=== PATIENT | female | born 1950 | race Caucasian/White ===

== ENCOUNTER 2017-03-11 10:01 | Outpatient (CLI) | payer MEDICARE, BC ==
[~2017-03-11] VITALS: Ht 160 cm; Wt 81.6 kg
[~2017-03-11 10:01] MED LIST: CITA20TA4 PO; LIDOCAINE 2% INJ 100 MG/5 ML SDV (FOR ANES.) As Ordered ONE; PROAAER10 INH; PROPOFOL 200 MG/20 ML VIAL As Ordered ONE; RALO1TAB PO; SIMV40TA2 PO; SPIR12.9 INH; VESI10TA2 PO
[2017-03-11] MEDS ORDERED: NS 1,000 ML IV SCH (10:15)
--- NOTE | 2017-03-11 11:23 | ROOR ---
Patient Name: Fabby Braga Procedure Date: 03/11/2017 10:58 AM Date of : 1950 Age: 66 Room: [facility] Gender: Female Note Status: Finalized Procedure: Colonoscopy Indications: High risk colon cancer surveillance: Personal history of colonic polyps Providers: Joaquín Watkins Jr, MD Referring MD: Megan Michel NP Requesting Provider: Medicines: Propofol per Anesthesia Complications: No immediate complications. Procedure: Pre-Anesthesia Assessment: - Prior to the procedure, a History and Physical was performed, and patient medications and allergies were reviewed. The patient is competent. The risks and benefits of the procedure and the sedation options and risks were discussed with the patient. All questions were answered and informed consent was obtained. Patient identification and proposed procedure were verified by the physician and the nurse in the pre-procedure area and in the procedure room. Mental Status Examination: alert and oriented. Airway Examination: normal oropharyngeal airway and neck mobility. Respiratory Examination: clear to auscultation. CV Examination: normal. ASA Grade Assessment: II - A patient with mild systemic disease. After reviewing the risks and benefits, the patient was deemed in satisfactory condition to undergo the procedure. The anesthesia plan was to use moderate sedation / analgesia (conscious sedation). Immediately prior to administration of medications, the patient was re-assessed for adequacy to receive sedatives. The heart rate, respiratory rate, oxygen saturations, blood pressure, adequacy of pulmonary ventilation, and response to care were monitored throughout the procedure. The physical status of the patient was re-assessed after the procedure. The Colonoscope was introduced through the anus and advanced to the cecum, identified by appendiceal orifice and ileocecal valve. The colonoscopy was performed without difficulty. The patient tolerated the procedure well. The quality of the bowel preparation was adequate and good. Findings: The rectum, recto-sigmoid colon, descending colon, transverse colon, ascending colon, cecum, appendiceal orifice and ileocecal valve appeared normal. Multiple small and large-mouthed diverticula were found in the sigmoid colon.There was some mild inflammation associated with the prep. Impression: - The rectum, recto-sigmoid colon, descending colon, transverse colon, ascending colon, cecum, appendiceal orifice and ileocecal valve are normal. - Diverticulosis in the sigmoid colon. - No specimens collected. Recommendation: - Discharge patient to home (ambulatory). - Repeat colonoscopy in 5 years for surveillance. Joaquín Watkins MD Joaquín Watkins Jr, MD 03/11/2017 11:22:47 AM This report has been signed electronically. Number of Addenda: 0 Note Initiated On: 03/11/2017 10:58 AM Estimated Blood Loss: Estimated blood loss: none.
[2017-03-11 11:38] VITALS: BP 149/67
== END 2017-03-11 11:44 | disposition home or self-care (01) ==
LOC: M OPP 10:01
PROVIDERS: ATTEND Surgery
DX: Z12.11 Encounter for screening for malignant neoplasm of colon (principal); Z86.010 Personal history of colon polyps; K57.30 Diverticulosis of large intestine without perforation or abscess without bleeding; F41.9 Anxiety disorder, unspecified; F32.9 Major depressive disorder, single episode, unspecified; J44.9 Chronic obstructive pulmonary disease, unspecified; E78.00 Pure hypercholesterolemia, unspecified; M19.90 Unspecified osteoarthritis, unspecified site; F17.210 Nicotine dependence, cigarettes, uncomplicated; Z79.82 Long term (current) use of aspirin; Z79.899 Other long term (current) drug therapy; Z88.0 Allergy status to penicillin

== ENCOUNTER → 2017-12-08 | Outpatient (CLI) | payer MEDICARE, BC | LOC: M RAD 13:27 | DX: Z12.31 Encounter for screening mammogram for malignant neoplasm of breast (principal) | CPT/HCPCS: 77067 ==

== ENCOUNTER → 2018-12-26 | Outpatient (CLI) | payer MEDICARE, BC ==
[~2018-12-26] MED LIST changes: -CITA20TA4 PO; +CITA20TA6 PO; -LIDOCAINE 2% INJ 100 MG/5 ML SDV (FOR ANES.) As Ordered ONE; -PROPOFOL 200 MG/20 ML VIAL As Ordered ONE
--- NOTE | 2018-12-26 15:28 | REPMRS ---
Patient History The patient states she had a clinical breast exam in October 2018. Family history of breast cancer at age 63 in sister. Took hormonal contraceptives for 5 years. Taking unspecified hormones for 18 years. Digital Mammo Screening Bilat: December 26, 2018 - Exam #: [id number] Bilateral CC and MLO view(s) were taken. Technologist: La Nena Garcia, Technologist Prior study comparison: December 08, 2017, bilateral digital mammo screening bilat performed at [facility]. May 06, 2016, bilateral digital mammo screening bilat performed at [facility]. April 22, 2015, digital bilateral screening mammo, performed at [facility]. FINDINGS: There are scattered fibroglandular densities. There has been no change in the appearance of the mammogram from the prior studies. There is a mild amount of scattered fibroglandular density which is fairly symmetric. There is no interval development of dominant mass, architectural distortion, or clustered microcalcification suggestive of malignancy. 3-D tomosynthesis shows no additional findings. Assessment: BI-RADS/ACR category 1 mammogram. Negative Mammogram. Recommendation Routine screening mammogram of both breasts in 1 year (for women over age 40). This patient's Lifetime Breast Cancer RIsk is estimated at 7.9 %. This mammogram was interpreted with the aid of an FDA-approved computer-aided dectection system. Electronically Signed By: Pillo Marmolejo MD 12/26/18 [id number]
== END ==
LOC: M RAD 14:20
PROVIDERS: ATTEND Nurse Practitioner Adult Health
DX: Z12.31 Encounter for screening mammogram for malignant neoplasm of breast (principal); Z80.3 Family history of malignant neoplasm of breast; Z92.0 Personal history of contraception; Z92.23 Personal history of estrogen therapy

== ENCOUNTER → 2020-05-14 | Outpatient (CLI) | payer MEDICARE, BC ==
[~2020-05-14] MED LIST changes: -SIMV40TA2 PO; +SIMV40TA20 PO
--- NOTE | 2020-05-14 17:47 | REP ---
INDICATION: NICOTINE DEPENDENCE. COMPARISON: 08/07/2008. TECHNIQUE: Low dose screening CT chest performed without the use of intravenous contrast. FINDINGS: Lungs: There is no infiltrate or suspicious nodule bilaterally. There are scattered interstitial fibrotic changes which are relatively mild, right more so than left lung. There are diffuse calcified pleural plaques on the right. Heart: Not enlarged. Thoracic aorta: No aneurysm. Atherosclerotic calcifications are noted. Visualized osseous structures: There are mild degenerative changes of the spine. IMPRESSION: Category 2 benign low-dose lung screening CT. Calcified pleural plaques on the right. Scattered interstitial fibrotic change. No suspicious nodule. Recommend follow-up exam in 1 year. <Electronically signed by Taiwo Herman > 05/14/20 1304
== END ==
LOC: M RAD 12:41
PROVIDERS: ATTEND Nurse Practitioner Adult Health
DX: F17.210 Nicotine dependence, cigarettes, uncomplicated (principal); R91.8 Other nonspecific abnormal finding of lung field

== ENCOUNTER → 2020-05-29 | Outpatient (CLI) | payer MEDICARE, BC ==
--- NOTE | 2020-05-29 15:47 | REPMRS ---
Patient History The patient states she has not had a clinical breast exam in over a year. Family history of breast cancer at age 63 in sister. Took hormonal contraceptives for 5 years. Taking unspecified hormones for 18 years. Digital Woman Screen Mammo: May 29, 2020 - Exam #: [id number] Bilateral CC and MLO view(s) were taken. Technologist: Katerina Zavala, Technologist Prior study comparison: December 26, 2018, bilateral digital mammo screening bilat, performed at [facility]. December 08, 2017, bilateral digital mammo screening bilat, performed at [facility]. May 06, 2016, bilateral digital mammo screening bilat, performed at [facility]. FINDINGS: There are scattered fibroglandular densities. The Volpara volumetric breast density category is:B. There has been no change in the appearance of the mammogram from the prior studies. There is a mild amount of scattered fibroglandular density which is fairly symmetric. There is no interval development of dominant mass, architectural distortion, or grouped microcalcification suggestive of malignancy. 3-D tomosynthesis shows no additional findings. Assessment: BI-RADS/ACR category 1 mammogram. Negative Mammogram. Recommendation Routine screening mammogram of both breasts in 1 year (for women over age 40). This patient's Lifetime Breast Cancer Risk is estimated at 7.1 %. This mammogram was interpreted with the aid of an FDA-approved computer-aided dectection system. Electronically Signed By: Pillo Marmolejo MD 05/29/20 [id number]
== END ==
LOC: M WHC 14:21
PROVIDERS: ATTEND Nurse Practitioner Adult Health
DX: Z12.31 Encounter for screening mammogram for malignant neoplasm of breast (principal); Z80.3 Family history of malignant neoplasm of breast

== ENCOUNTER 2020-12-21 18:05 | Emergency (ER) | payer MEDICARE, BC ==
[~2020-12-21] VITALS: Ht 160 cm; Wt 76.3 kg
[2020-12-21] MEDS ORDERED: predniSONE 20 MG TAB PO ONE (20:05)
[2020-12-21] MEDS ORDERED: BENA25CA4 PO (20:05)
[2020-12-21] MEDS ORDERED: diphenhydrAMINE 25MG CAP PO ONE (20:05)
[2020-12-21] MEDS ORDERED: PRED20TA PO (20:05)
[2020-12-21] MEDS ORDERED: POLYSOL OP (20:07)
[2020-12-21 20:19] VITALS: BP 141/64
== END 2020-12-21 20:21 | disposition home or self-care (01) ==
LOC: M ED 18:05
DX: S00.261A Insect bite (nonvenomous) of right eyelid and periocular area, initial encounter (principal); W57.XXXA Bitten or stung by nonvenomous insect and other nonvenomous arthropods, initial encounter; Y92.89 Other specified places as the place of occurrence of the external cause; J44.9 Chronic obstructive pulmonary disease, unspecified; M79.9 Soft tissue disorder, unspecified; F41.9 Anxiety disorder, unspecified; F32.9 Major depressive disorder, single episode, unspecified; H40.9 Unspecified glaucoma; Z79.899 Other long term (current) drug therapy; Z88.0 Allergy status to penicillin
CPT/HCPCS: 99283; J7512

== ENCOUNTER → 2021-02-13 | Outpatient (CLI) | payer MEDICARE, BC ==
[~2021-02-13] MED LIST changes: +BENA25CA4 PO; +POLYSOL OP; +PRED20TA PO
== END ==
LOC: M LAB 15:12
PROVIDERS: ATTEND Physician Assistant Medical
DX: R29.2 Abnormal reflex (principal)

== ENCOUNTER → 2021-02-21 | Outpatient (REF) | payer MEDICARE, BC | LOC: M LAB REF 14:42 | PROVIDERS: ATTEND Internal Medicine Gastroenterology | DX: R19.7 Diarrhea, unspecified (principal) ==

== ENCOUNTER → 2021-04-23 | Outpatient (CLI) | payer MEDICARE, BC ==
[~2021-04-23] MED LIST changes: +BRIM1OPD; +ECOT81TA5 PO; +LATA0.0015; +VENL37TA
== END ==
LOC: M LABSMTC 11:21
PROVIDERS: ATTEND Anesthesiology
DX: Z01.818 Encounter for other preprocedural examination (principal); Z11.52 Encounter for screening for COVID-19

== ENCOUNTER 2021-04-28 07:47 | Day surgery (SDC) | payer MEDICARE, BC ==
[~2021-04-28] VITALS: Ht 160 cm; Wt 75.2 kg
[~2021-04-28 07:47] MED LIST changes: +LIDOCAINE 2% 100MG/5ML SDV (FOR ANES.) As Ordered ONE; +NS 1,000 ML IV ONE; +propofoL 200 MG/20 ML VIAL As Ordered ONE
[2021-04-28] MEDS ORDERED: PROMETHAZINE INJ 25 MG/ML VIAL (J2550) As Ordered ONE (08:44)
--- NOTE | 2021-04-28 09:19 | ROOR ---
Patient Name: Fabby Braga Procedure Date: 04/28/2021 8:33 AM Date of : 1950 Age: 71 Room: [facility] Gender: Female Note Status: Finalized Procedure: Colonoscopy Indications: Chronic diarrhea Providers: Homero Singh MD Referring MD: Megan Michel NP Requesting Provider: Medicines: Monitored Anesthesia Care Complications: No immediate complications. Procedure: Pre-Anesthesia Assessment: - Prior to the procedure, a History and Physical was performed, and patient medications and allergies were reviewed. The patient is competent. The risks and benefits of the procedure and the sedation options and risks were discussed with the patient. All questions were answered and informed consent was obtained. Patient identification and proposed procedure were verified by the physician, the nurse and the anesthesiologist in the procedure room. Mental Status Examination: alert and oriented. Airway Examination: normal oropharyngeal airway and neck mobility. Respiratory Examination: clear to auscultation. CV Examination: normal. Prophylactic Antibiotics: The patient does not require prophylactic antibiotics. Prior Anticoagulants: The patient has taken no previous anticoagulant or antiplatelet agents. ASA Grade Assessment: II - A patient with mild systemic disease. After reviewing the risks and benefits, the patient was deemed in satisfactory condition to undergo the procedure. The anesthesia plan was to use monitored anesthesia care (MAC). Immediately prior to administration of medications, the patient was re-assessed for adequacy to receive sedatives. The heart rate, respiratory rate, oxygen saturations, blood pressure, adequacy of pulmonary ventilation, and response to care were monitored throughout the procedure. The physical status of the patient was re-assessed after the procedure. The Colonoscope was introduced through the anus and advanced to the terminal ileum, with identification of the appendiceal orifice and IC valve. The colonoscopy was performed without difficulty. The patient tolerated the procedure well. The quality of the bowel preparation was good. The terminal ileum, ileocecal valve, appendiceal orifice, and rectum were photographed. Scope insertion time was 2 minutes. Scope withdrawal time was 9 minutes. The total duration of the procedure was 14 minutes. Findings: The perianal and digital rectal examinations were normal. The terminal ileum appeared normal. Multiple small and large-mouthed diverticula were found from sigmoid to descending colon. There was evidence of diverticular spasm. Adriana-diverticular erythema was seen. There was no evidence of diverticular bleeding. Normal mucosa was found in the entire colon. Biopsies for histology were taken with a cold forceps from the right colon, left colon and rectosigmoid colon for evaluation of microscopic colitis. Verification of patient identification for the specimen was done by the physician and nurse using the patient's name, date and medical record number. Estimated blood loss was minimal. Non-bleeding external and internal hemorrhoids were found during retroflexion. The hemorrhoids were medium-sized. Impression: - The examined portion of the ileum was normal. - Severe diverticulosis from sigmoid to descending colon. There was evidence of diverticular spasm. Adriana-diverticular erythema was seen. There was no evidence of diverticular bleeding. - Normal mucosa in the entire examined colon. Biopsied. - Non-bleeding external and internal hemorrhoids. Recommendation: - Patient has a contact number available for emergencies. The signs and symptoms of potential delayed complications were discussed with the patient. Return to normal activities tomorrow. Written discharge instructions were provided to the patient. - High fiber diet. - Continue present medications. - Use fiber, for example Citrucel, Fibercon, Konsyl or Metamucil. - Await pathology results. - Repeat colonoscopy in 5-10 years for surveillance based on pathology results. - Telephone GI clinic for pathology results in 2 weeks. - Return to GI clinic if persistent symptoms or new symptoms. - Return to primary care physician. Procedure Code(s): --- Professional --- 71284, Colonoscopy, flexible; with biopsy, single or multiple Diagnosis Code(s): --- Professional --- K64.8, Other hemorrhoids K52.9, Noninfective gastroenteritis and colitis, unspecified K57.30, Diverticulosis of large intestine without perforation or abscess without bleeding CPT copyright 2019 [employer]. All rights reserved. The codes documented in this report are preliminary and upon water treatment plant operator review may be revised to meet current compliance requirements. Homero Singh MD Homero Singh MD 04/28/2021 9:19:09 AM Electronically signed by Homero Singh MD Number of Addenda: 0 Note Initiated On: 04/28/2021 8:33 AM Estimated Blood Loss: Estimated blood loss was minimal.
[2021-04-28 09:30] VITALS: BP 120/84
== END 2021-04-28 10:02 | disposition home or self-care (01) ==
LOC: M OPP 07:47
PROVIDERS: ATTEND Internal Medicine Gastroenterology
DX: K52.9 Noninfective gastroenteritis and colitis, unspecified (principal); K57.30 Diverticulosis of large intestine without perforation or abscess without bleeding; K64.8 Other hemorrhoids; G47.30 Sleep apnea, unspecified; J44.9 Chronic obstructive pulmonary disease, unspecified; Z79.82 Long term (current) use of aspirin; Z79.899 Other long term (current) drug therapy; Z88.0 Allergy status to penicillin; F17.210 Nicotine dependence, cigarettes, uncomplicated

== ENCOUNTER → 2021-06-24 | Outpatient (CLI) | payer MEDICARE, BC ==
[~2021-06-24] MED LIST changes: -LIDOCAINE 2% 100MG/5ML SDV (FOR ANES.) As Ordered ONE; -NS 1,000 ML IV ONE; -propofoL 200 MG/20 ML VIAL As Ordered ONE
--- NOTE | 2021-06-24 15:03 | REP ---
INDICATION: STENOSIS COMPARISON: 06/11/2020. TECHNIQUE: Real-time ultrasound evaluation and duplex Doppler interrogation of the extracranial carotid vasculature is performed. FINDINGS: There is moderate calcific plaque in the right common carotid artery, carotid bulb, extending into the internal and external carotid arteries. There is relatively mild plaquing in the left carotid bulb and internal carotid artery. There is elevated peak systolic velocity in both internal carotid arteries compatible with bilateral stenosis between 50 and 69%, unchanged since the prior study. There is normal direction of flow in the right vertebral artery. The left vertebral artery is not visualized. RIGHT LEFT Peak systolic velocity ICA 230 cm/s 144 cm/s End diastolic velocity ICA 52.1 cm/s 31.1 cm/s Peak systolic velocity CCA 114.0 cm/s 94.2cm/s Peak systolic velocity ECA 170 cm/s 391 cm/s ICA/CCA ratio 2.02 1.53 IMPRESSION: No significant change compared to the prior study. There are findings compatible with bilateral stenosis of the internal carotid arteries 50-69%. <Electronically signed by Taiwo Herman > 06/24/21 1500
== END ==
LOC: M RAD 13:17
PROVIDERS: ATTEND Surgery Vascular Surgery
DX: I65.23 Occlusion and stenosis of bilateral carotid arteries (principal)

== ENCOUNTER → 2021-07-28 | Outpatient (CLI) | payer MEDICARE, BC | LOC: M WHC 12:57 | PROVIDERS: ATTEND Nurse Practitioner Adult Health | DX: Z12.31 Encounter for screening mammogram for malignant neoplasm of breast (principal) ==

== ENCOUNTER → 2021-08-25 | Outpatient (CLI) | payer MEDICARE, BC | LOC: M RAD 12:52 | PROVIDERS: ATTEND Nurse Practitioner Adult Health | DX: Z87.891 Personal history of nicotine dependence (principal) ==

== ENCOUNTER → 2022-06-25 | Outpatient (CLI) | payer MEDICARE, BC | LOC: M RAD 13:44 | PROVIDERS: ATTEND Physician Assistant | DX: I65.23 Occlusion and stenosis of bilateral carotid arteries (principal) ==

== ENCOUNTER → 2022-09-22 | Outpatient (CLI) | payer MEDICARE, BC | LOC: M WHC 15:47 | PROVIDERS: ATTEND Nurse Practitioner Adult Health | DX: Z12.31 Encounter for screening mammogram for malignant neoplasm of breast (principal) ==

== ENCOUNTER → 2023-06-30 | Outpatient (CLI) | payer MEDICARE, BC | LOC: M RAD 11:37 | PROVIDERS: ATTEND Physician Assistant | DX: I65.23 Occlusion and stenosis of bilateral carotid arteries (principal) ==

== ENCOUNTER → 2024-01-11 | Outpatient (CLI) | payer MEDICARE, BC | LOC: M RAD 12:10 | PROVIDERS: ATTEND Physician Assistant | DX: I65.23 Occlusion and stenosis of bilateral carotid arteries (principal); M79.609 Pain in unspecified limb ==

== ENCOUNTER → 2024-01-11 | Outpatient (CLI) | payer MEDICARE, BC | LOC: M RAD 12:13 | PROVIDERS: ATTEND Podiatrist | DX: M79.609 Pain in unspecified limb (principal) ==

== ENCOUNTER → 2024-02-17 | Outpatient (CLI) | payer MEDICARE, BC | LOC: M RAD 14:49 | PROVIDERS: ATTEND Nurse Practitioner Adult Health | DX: Z12.2 Encounter for screening for malignant neoplasm of respiratory organs (principal); F17.210 Nicotine dependence, cigarettes, uncomplicated ==

== ENCOUNTER → 2024-03-08 | Outpatient (CLI) | payer MEDICARE, BC | LOC: M PLAIMG 13:24 | PROVIDERS: ATTEND Internal Medicine | DX: R26.81 Unsteadiness on feet (principal) ==

== ENCOUNTER → 2024-03-09 | Outpatient (CLI) | payer MEDICARE, BC | LOC: M WHC 14:43 | PROVIDERS: ATTEND Nurse Practitioner Adult Health | DX: Z12.31 Encounter for screening mammogram for malignant neoplasm of breast (principal); M81.0 Age-related osteoporosis without current pathological fracture ==

== ENCOUNTER → 2024-11-22 | Outpatient (CLI) | payer MEDICARE, BC ==
[~2024-11-22] MED LIST changes: -BRIM1OPD; +BRIM5DRO25
== END ==
LOC: M RAD 13:39
PROVIDERS: ATTEND Nurse Practitioner Adult Health
DX: F17.210 Nicotine dependence, cigarettes, uncomplicated (principal)

== ENCOUNTER → 2025-01-16 | Outpatient (REF) | payer MEDICARE, BC | LOC: M LAB REF 14:13 | PROVIDERS: ATTEND Nurse Practitioner Family | DX: N39.0 Urinary tract infection, site not specified (principal) ==

== ENCOUNTER 2025-02-07 06:10 | Day surgery (SDC) | payer MEDICARE, BC ==
[~2025-02-07] VITALS: Ht 154.9 cm; Wt 65.7 kg
[~2025-02-07 06:10] MED LIST changes: +BUDE10.7 IH; +CITA40TA7 PO; +LATA1DRO OU; +ONE50TAB3 PO; +ROSU20TA86 PO; +VITA100093 PO
[2025-02-07] MEDS ORDERED: SUGAMMADEX SODIUM 500 MG/5 ML VIAL As Ordered ONE (06:52)
[2025-02-07] MEDS ORDERED: dexAMETHasone 4 MG/ML 1 ML VIAL As Ordered ONE (06:52)
[2025-02-07] MEDS ORDERED: ROCURONIUM BROMIDE 50MG/5ML VIAL As Ordered ONE (06:52)
[2025-02-07] MEDS ORDERED: ONDANSETRON 4MG 2ML VIAL As Ordered ONE (06:52)
[2025-02-07] MEDS ORDERED: LIDOCAINE 2% 100 MG/5 ML SDV (FOR ANES.) As Ordered ONE (06:52)
[2025-02-07] MEDS ORDERED: MIDAZOLAM INJ 2 MG/2 ML VIAL As Ordered ONE (06:58)
[2025-02-07] MEDS: ALBUTEROL SULFATE 2.5 MG/0.5 ML INH CONCENTRATE NEB SOLN INH ONE (07:10)
[2025-02-07] MEDS: LIDOCAINE PRES-FREE 2% 10 ML AMP NEB ONE (07:10)
[2025-02-07] MEDS: LR 1,000 ML IV SCH (07:12)
[2025-02-07] MEDS ORDERED: ACETAMINOPHEN 1000MG/100ML IV BAG As Ordered ONE (07:46)
[2025-02-07] MEDS: CETACAINE SPRAY 5 GM As Ordered ONE (07:50)
[2025-02-07] MEDS: THROMBIN 5,000 UNITS VIAL As Ordered ONE (07:55)
[2025-02-07] MEDS: EPINEPHrine 1 MG/10 ML SYRINGE 1.5IN As Ordered ONE (07:55)
[2025-02-07] MEDS: PHENYLephrine 500MCG 5ML (100MCG/ML) SYRINGE IV PRN (08:17)
[2025-02-07] MEDS ORDERED: VASOPRESSIN INJ 20UNITS/ML 1ML VIAL As Ordered ONE (08:29)
[2025-02-07] MEDS: VASOPRESSIN INJ 20UNITS/ML 1ML VIAL IV PRN (08:31)
[2025-02-07] MEDS ORDERED: ONDANSETRON 4MG 2ML VIAL IV PRN (08:35)
[2025-02-07 10:19] VITALS: BP 141/62; TEMP 97.1; O2SAT 93
== END 2025-02-07 10:21 | disposition home or self-care (01) ==
LOC: M SDC 06:10
PROVIDERS: ATTEND Internal Medicine Critical Care Medicine
DX: J39.8 Other specified diseases of upper respiratory tract (principal); J44.9 Chronic obstructive pulmonary disease, unspecified; F17.218 Nicotine dependence, cigarettes, with other nicotine-induced disorders; J30.2 Other seasonal allergic rhinitis; E78.00 Pure hypercholesterolemia, unspecified; G47.30 Sleep apnea, unspecified; R32 Unspecified urinary incontinence; Z79.51 Long term (current) use of inhaled steroids; Z79.899 Other long term (current) drug therapy; Z79.82 Long term (current) use of aspirin; Z88.0 Allergy status to penicillin
CPT/HCPCS: 31624; 87070; 87077; 87102; 87116; 87186; 87205; 87206; 88108; 88313; J0131; J1100; J2250; J2371; J2405; J2598; J3010

== ENCOUNTER → 2025-02-19 | Outpatient (CLI) | payer MEDICARE, BC | LOC: M RAD 13:01 | PROVIDERS: ATTEND Nurse Practitioner Family | DX: I77.1 Stricture of artery (principal) ==

== ENCOUNTER → 2025-03-13 | Outpatient (CLI) | payer MEDICARE, BC ==
[~2025-03-13] MED LIST changes: +ISOVUE-370 76% 100 ML VIAL ONE
== END ==
LOC: M PLAIMG 13:23
PROVIDERS: ATTEND Nurse Practitioner Adult Health
DX: I77.1 Stricture of artery (principal)
CPT/HCPCS: 71275; Q9967

== ENCOUNTER → 2025-05-03 | Outpatient (CLI) | payer MEDICARE, BC ==
[~2025-05-03] MED LIST changes: -ISOVUE-370 76% 100 ML VIAL ONE
== END ==
LOC: M PLAIMG 12:27
DX: J06.9 Acute upper respiratory infection, unspecified (principal); R06.00 Dyspnea, unspecified; R06.2 Wheezing; R05.9 Cough, unspecified

== ENCOUNTER → 2025-07-09 | Outpatient (CLI) | payer MEDICARE, BC | LOC: M PLAIMG 13:27 | PROVIDERS: ATTEND Internal Medicine Critical Care Medicine | DX: R91.8 Other nonspecific abnormal finding of lung field (principal) ==